=== PATIENT | female | born 1985 | race Two or more races ===

== ENCOUNTER 2024-06-16 07:58 | Emergency (ER) | payer MEDICAID, SELFPAY ==
[2024-06-16 08:14] VITALS: BP 117/70; PULSE 83; RESP 16; TEMP 37; O2SAT 99; BMI 34.2
--- NOTE | 2024-06-16 08:42 | EDNOTE_ITS ---
ED SOB =RME/HPI General Chief Complaint: Shortness of Breath/Dyspnea Stated Complaint: FLU A+ HAVING SOB Time Seen by Provider: 06/16/24 08:07 Arrival date/time: 06/16/24 07:58 This is a 38-year-old female that was diagnosed with influenza a approximately 5 days ago. Patient states he told her at the clinic to just take Tylenol and they sent her home. Patient states that she has been having some trouble breathing recently. Patient denies fever chills. Patient complains of cough and runny nose. Patient denies past medical history. Related Data Previous Rx's ?Medication ?Instructions ?Recorded psyllium husk 3 gram/5.4 gram oral 1 tbsp PO QDAY #284 grams 03/26/19 powder albuterol sulfate 90 mcg/actuation 2 puff inhalation Q ID PRN 06/16/24 aerosol inhaler shortness of breath or wheez ing #8.5 grams ibuprofen 800 mg tablet 800 mg PO Q6H PRN pain #14 t abs 06/16/24 promethazine-DM 6.25 mg-15 mg/5 mL 5 ml PO Q6H PRN cou gh #118 mL 06/16/24 oral syrup Allergies Allergy/AdvReac Type Severity Reaction Status Date / Time No Known Allergies Allergy Verified 06/16/24 08:00 Review of Systems Review of Systems Systems Reviewed: All systems reviewed, normal except as documented Past Medical History Social History SMOKING STATUS: Never smoker Travel History EBOLA RISK: No ED Exam General General appearance: Present alert and in no apparent distress Head Head exam: Present atraumatic Eye Eye exam: Present normal appearance, PERRL and EOMI ENT ENT exam: Present normal exam, normal oropharynx and mucous membranes moist Neck Neck exam: Present normal inspection, full ROM and trachea midline Chest Chest inspection: Present normal inspection and symmetric chest wall rise Respiratory Respiratory exam: Present other (wheezing posteriorly, improved with breathing tx ) Cardiovascular Cardiovascular exam: Present regular rate, normal rhythm and normal heart sounds Abdominal Exam Abdominal exam: Present soft Extremities Exam Extremities exam: Present normal inspection and full ROM Back Exam Back exam: Present normal inspection and full ROM Neurological Exam Neurological exam: Present alert, oriented X3 and CN II-XII intact Psychiatric Psychiatric exam: Present normal affect and normal mood Skin Skin exam: Present warm, dry, intact and normal color Course Quality Measures none Orders Category Date Time Status ALBUTEROL RT 3ml [Proventil Rt 3ml] Med 06/16/24 08:30 Discontinued 2.5 mg INH X1 ONE Dexamethasone Inj [Decadron Inj] Med 06/16/24 08:30 Discontinued 10 mg PO X1 ONE Ibuprofen Tab [Motrin Tab] Med 06/16/24 08:32 Discontinued 600 mg PO X1 ONE Promethazine/Dextromethorph [Phenergan Dm Syrup] Med 06/16/24 08:30 Discontinued 5 ml PO X1 ONE Vital Signs Vital signs: Vital Signs Temperature 98.6 F 06/16/24 08:14 Pulse Rate 83 06/16/24 08:14 Respiratory Rate 16 06/16/24 08:14 Blood Pressure 117/70 06/16/24 08:14 Pulse Oximetry (%) 99 06/16/24 08:14 Oxygen Delivery Method Room Air 06/16/24 08:14 Shortness of Breath / Dyspnea MDM Narrative MDM Narrative:: Patients breathing improved with breathing treatment. Patient reports she feels better. Will send patient home with cough medicine along with an inhaler. Patient reports that she has used an inhaler in the past. She reports she had trouble breathing after she had COVID. Patient told to follow-up with primary provider in 1 to 2 days. Come back to the emergency room if symptoms change or worsen. Patient data External records reviewed:: [facility] previous records Clinical information provided by:: patient Social determinants that could affect healthcare access:: none Patient has the following chronic illnesses:: nonen How is presenting disease/condition affected by chronic disease/condition?: no chronic disease Evaluation data The following diagnostics were reviewed and interpreted by me:: lab results Lab and/or radiology exams considered but not ordered:: none Interpretation Summary: see note Medications / Prescriptions Medications or Prescriptions considered but not ordered:: none Medication administrations:: Medication Administration History Discontinued Medications Albuterol (Albuterol Rt 2.5 Mg/3 Ml Nebu) 2.5 mg INH X1 ONE Stop: 06/16/24 08:31 Last Admin: 06/16/24 08:48 Dose: 2.5 mg Documented By: LO Dexamethasone Sodium Phosphate (Dexamethasone Sod Phos Inj 10 Mg/Ml Vial) 10 mg PO X1 ONE Stop: 06/16/24 08:31 Last Admin: 06/16/24 08:50 Dose: 10 mg Documented By: ED Ibuprofen (Ibuprofen Tab 600 Mg Tablet) 600 mg PO X1 ONE Stop: 06/16/24 08:33 Last Admin: 06/16/24 08:50 Dose: 600 mg Documented By: ED Promethazine HCl/Dextromethorphan (Promethazine/Dm Syrup 5 Ml Dose) 5 ml PO X1 ONE; Protocol Stop: 06/16/24 08:31 Last Admin: 06/16/24 08:55 Dose: 5 ml Documented By: ED see mar Consultations Consultation(s) initiated? (list below): No Diagnosis Shortness of Breath Differential Diagnosis: acute exacerbation of chronic obstructive airways disease, community acquired pneumonia, asthma with exacerbation and other Most likely diagnosis given after review of the tests above:: rad Admission Indicated Admission indicated?: not indicated Admission Request Was there a request for admission?: No Disposition Plan Disposition Plan: Discharge Discharge Attestation Discharge Attestation: The patient and all family members were given an opportunity to ask questions and understood the discharge instructions. Discharge instructions specifically effects, indications for sooner follow up or return to the emergency department, and the expected course of current diagnosis. Patient condition: Stable Discharge Plan Plan Patient Disposition: HOME (Self Care) Patient condition on transfer: Stable Prescriptions/Referrals Prescriptions/Med Rec: New promethazine-DM 6.25-15 mg/5 mL syrup 5 ml PO Q6H PRN (Reason: cough) Qty: 118 0RF ibuprofen 800 mg tablet 800 mg PO Q6H PRN (Reason: pain) Qty: 14 0RF albuterol sulfate 90 mcg/actuation HFA aerosol inhaler 2 puff inhalation QID PRN (Reason: shortness of breath or wheezing) Qty: 8.5 0RF No Action psyllium husk 3 gram/5.4 gram powder 1 tbsp PO QDAY Qty: 284 0RF Rx Instructions: mix into at least 8 oz of water or juice before administering Referrals: Mk Walls MD [Primary Care Provider] - In 1 week Problem List Clinical Impression: RAD (reactive airway disease), Influenza A, Cough Patient/Caregiver Discharge Instructions Discharge Activity: activity as tolerated Education Materials: ED Influenza (Adult), ED Inhaler Use Additional Instructions: Follow-up with primary provider in 1 to 2 days. Come back to the emergency room if symptoms change or worsen. Print Language: Vietnamese Stand Alone Forms: Swati Award Info., Patient Portal Info Letter PA/WINDOWS PHONE DEVELOPER Supervising Physician PA/WINDOWS PHONE DEVELOPER Supervising Physician: marissa
[2024-06-16 08:48] VITALS: PULSE 79
[2024-06-16] MEDS: ALBUTEROL RT 2.5 MG/3 ML NEBU INH (08:48)
[2024-06-16 08:49] VITALS: PULSE 77; RESP 18; O2SAT 100
[2024-06-16] MEDS: DEXAMETHASONE SOD PHOS INJ 10 MG/ML VIAL PO (08:50)
[2024-06-16] MEDS: IBUPROFEN TAB 600 MG TABLET PO (08:50)
[2024-06-16] MEDS: PROMETHAZINE/DM SYRUP 5 ML DOSE PO (08:55)
[2024-06-16 10:00] VITALS: BP 122/80; PULSE 81; RESP 17; TEMP 36.8; O2SAT 98
== END 2024-06-16 10:02 | disposition home or self-care (01) ==
PROVIDERS: Emergency Provider Emergency Medicine; PCP Family Medicine
DX: J10.1 Influenza due to other identified influenza virus with other respiratory manifestations (principal); J45.909 Unspecified asthma, uncomplicated
CPT/HCPCS: 94640; 99282; J1100; A9270